=== PATIENT | male | born 1940 | race Caucasian/White ===

== ENCOUNTER 2021-05-10 17:22 | Inpatient (IN) | payer OTHER ==
[~2021-05-10] VITALS: Ht 188 cm; Wt 104.3 kg
[2021-05-10] MEDS ORDERED: PANTOPRAZOLE SO40 M2 (19:27)
[2021-05-10] MEDS ORDERED: ZESTRIL40 M1 (19:27)
[2021-05-10] MEDS ORDERED: TOPROL XL25 M1 (19:27)
[2021-05-10] MEDS ORDERED: NASAL MIST126 ML (19:28)
[2021-05-10] MEDS ORDERED: ALLERGY RELIE15.8 ML (19:28)
[2021-05-10] MEDS ORDERED: INCRUSE ELLI62.5 MCG (19:28)
[2021-05-10] MEDS ORDERED: REPATHA SU140 MG/1 M (19:28)
[2021-05-10] MEDS ORDERED: MELOXICAM7.5 MG (19:28)
[2021-05-12] MEDS ORDERED: NIFEDIPINE ER90 M1 (08:14)
[2021-05-12] MEDS ORDERED: FLUTICASONE-SA1 EAC1 (08:14)
[2021-05-12] MEDS ORDERED: PROAIR HFA8.5 GM (08:15)
[2021-05-12] MEDS ORDERED: UROXATRAL10 MG (08:15)
== END 2021-05-12 16:32 | disposition left against medical advice (07) | DRG 390 ==
LOC: ER 17:22 → SURH 05-11 03:33
PROVIDERS: ADMIT Surgery; ATTEND Surgery
PROC: BW21ZZZ Computerized Tomography (CT Scan) of Abdomen and Pelvis (ICD-10-PCS; principal; 2021-05-11)
DX: K56.609 Unspecified intestinal obstruction, unspecified as to partial versus complete obstruction (principal); N40.0 Benign prostatic hyperplasia without lower urinary tract symptoms; I10 Essential (primary) hypertension; J45.909 Unspecified asthma, uncomplicated; Z86.012 Personal history of benign carcinoid tumor; Z86.16 Personal history of COVID-19